=== PATIENT | female | born 2000 | race Caucasian/White ===

== ENCOUNTER 2018-01-26 00:09 | Emergency (ER) | payer BC ==
[2018-01-26 00:22] VITALS: BP 95/61; PULSE 108; TEMP 98.3; BMI 21.0
--- NOTE | 2018-01-26 00:25 | PDOC ---
History of Present Illness - General Chief Complaint: Pain, Acute Stated Complaint: HIT HEAD ON FURNITURE Time Seen by Provider: 01/26/18 00:11 - History of Present Illness Initial Comments: 01/26/18 00:44 This 17-year-old woman with a history of eating disorder/depression/multiple concussions in the past presents with history of injury to the back of her head approximately 12 hours prior to presentation. At approximately 12 noon, she was sitting on an ottoman and leaned backwards, thinking she would contact the seat cushion. Instead, she impacted the back of her head against the wooden armrest of the chair. Patient had no loss of consciousness but had significant pain on contacting the armrest. Over the next several hours, she began to have progressive headache, nausea (no vomiting), lightheadedness and balance problems. She has had 2 doses of Tylenol 1 g at approximately 12:30 p.m. and the next at 6 PM. She continues to have headache throughout her head. She also has some left-sided neck pain. Of note, the patient has had 5 previous concussions: Most recently, patient had minor trauma to her head 7 months ago resulting in concussion symptoms. She also had 2 related to cheerleading and another 2 when she was 11 years old. She had one episode of post concussion syndrome lasting approximately 6 months. Her neurologist are in [place] where she lives Currently a resident of [facility] Past History - Past Medical History Allergies/Adverse Reactions: Allergies Allergy/AdvReac Type Severity Reaction Status Date / Time aloe Allergy Verified 01/26/18 00:11 Home Medications: Ambulatory Orders Clonazepam [Klonopin] 1 mg PO BID 01/26/18 Fluoxetine HCl [Prozac] 60 mg PO DAILY 01/26/18 Minocycline HCl 75 mg PO DAILY 01/26/18 COPD: No Other medical history: ANOREXIA, DEPRESSION - Suicide/Smoking/Psychosocial Hx Smoking History: Never smoked Have you smoked in the past 12 months: No Information on smoking cessation initiated: No Hx Alcohol Use: No Drug/Substance Use Hx: No Substance Use Type: None Review of Systems - Review of Systems Able to Perform ROS?: Yes Comments:: 12 point review of systems is negative except for what is noted in the history of present illness *Physical Exam - Vital Signs Last Vital Signs Temp Pulse Resp BP Pulse Ox 98.3 F 108 H 16 95/61 100 01/26/18 00:15 01/26/18 00:15 01/26/18 00:15 01/26/18 00:15 01/26/18 00:15 - Physical Exam Comments: GENERAL: Young female, alert and oriented 3, in no acute distress HEAD: Minimal edema/mild tenderness/no contusion, abrasions or lacerations occipital scalp No other evidence of inflammation or injury EYES: PERRLA, pupils 3 mm round/equal/briskly reactive, EOMI, sclera anicteric, conjunctiva clear. ENT: Ears normal, nares patent, oropharynx clear without exudates. Dry mucous membranes. NECK: Mild tenderness midline 2 through 5 ; Normal range of motion, supple without lymphadenopathy, JVD, or masses. LUNGS: Breath sounds equal, clear to auscultation bilaterally. No wheezes, and no crackles. HEART:Regular rate and rhythm, normal S1 and S2 without murmur, rub or gallop. ABDOMEN:.normal bowel sounds No guarding,tenderness or rebound.No masses No distention. EXTREMITIES: Normal range of motion, no edema. No clubbing or cyanosis. No erythema, or tenderness. NEUROLOGICAL: Cranial nerves II through XII grossly intact. Normal speech. No focal neurological deficits. MUSCULOSKELETAL: Back non-tender to palpation, no CVA tenderness SKIN: Warm, Dry, normal turgor, no rashes or lesions noted. Progress Note - Progress Note Progress Note: Noncontrast head CT and cervical spine CT performed. No evidence of fracture or acute injury in either study. Patient discharged with instructions to avoid strenuous exercise for the next 2 days; she should elevate her head is much as possible. She should return to the emergency room if she has persistent vomiting/severe headache/severe lightheadedness. Patient is at [facility] and is not returning home to [place] for a while. Therefore, she will be given local neurology referral: Dr. Love service is [employer] and referral information provided to the patient. Considering the patient's past history of multiple concussions, neurology follow -up is prudent. She should follow up with the group within 1 week, especially if she has any residual symptoms. If the patient develops severe, persistent headache or vomiting, she should return to the emergency room *DC/Admit/Observation/Transfer Diagnosis at time of Disposition: Closed head injury Qualifiers: Encounter type: initial encounter Qualified Code(s): S09.90XA - Unspecified injury of head, initial encounter Neck strain Qualifiers: Encounter type: initial encounter Qualified Code(s): S16.1XXA - Strain of muscle, fascia and tendon at neck level, initial encounter - Discharge Dispostion Disposition: HOME Condition at time of disposition: Stable - Referrals Referrals: Max Love MD [Staff Physician] - 1 week - Patient Instructions Printed Discharge Instructions: DI for Cervical Muscle Strain, DI for Closed Head Injury Additional Instructions: Avoid strenuous activity for the next 2 days Tylenol as needed for pain for the next 24 hours, then ibuprofen/naproxen if needed Return to ER if you have severe headache/vomiting/severe lightheadedness Follow-up with Dr. Love neurology group if you have persistent headache or other symptoms - Post Discharge Activity
== END 2018-01-26 04:27 | disposition home or self-care (01) ==
LOC: FER 00:09
DX: S09.90XA Unspecified injury of head, initial encounter (principal); S16.1XXA Strain of muscle, fascia and tendon at neck level, initial encounter; R63.0 Anorexia; F32.9 Major depressive disorder, single episode, unspecified; W18.39XA Other fall on same level, initial encounter; Y93.89 Activity, other specified; Y92.9 Unspecified place or not applicable
CPT/HCPCS: 70450-TC; 72125-TC; 84703; 99281-25